=== PATIENT | male | born 1985 | race Caucasian/White ===

== ENCOUNTER 2023-01-09 13:34 | Emergency (ER) | payer SELFPAY ==
[~2023-01-09] VITALS: Ht 175.3 cm; Wt 97.5 kg
[2023-01-09 13:42] VITALS: BP 121/86
[2023-01-09 13:45] VITALS: BP 135/91
[2023-01-09] MEDS ORDERED: BACTRIM DS1 TAB PO (14:37)
[2023-01-09 14:45] VITALS: BP 130/89
[2023-01-09 14:59] VITALS: BP 130/89
== END 2023-01-09 15:01 | disposition home or self-care (01) | DRG 864 ==
LOC: ED 13:34
DX: R50.83 Postvaccination fever (principal); T50.A15A Adverse effect of pertussis vaccine, including combinations with a pertussis component, initial encounter; S61.411D Laceration without foreign body of right hand, subsequent encounter; X58.XXXD Exposure to other specified factors, subsequent encounter

== ENCOUNTER 2023-01-14 05:19 | Emergency (ER) | payer OTHER ==
[~2023-01-14] VITALS: Ht 175.3 cm; Wt 97.0 kg
[~2023-01-14 05:19] MED LIST: BACTRIM DS1 TAB PO
[2023-01-14 06:00] VITALS: BP 126/75
[2023-01-14 06:16] VITALS: BP 129/74
[2023-01-14 06:31] VITALS: BP 109/69
[2023-01-14 06:46] VITALS: BP 120/79
[2023-01-14 07:01] VITALS: BP 115/78
[2023-01-14 07:16] VITALS: BP 121/64
== END 2023-01-14 07:25 | disposition home or self-care (01) | DRG 864 ==
LOC: ED 05:19
DX: R50.83 Postvaccination fever (principal); T50.A15A Adverse effect of pertussis vaccine, including combinations with a pertussis component, initial encounter; S61.411D Laceration without foreign body of right hand, subsequent encounter; X58.XXXD Exposure to other specified factors, subsequent encounter

== ENCOUNTER 2023-01-16 18:30 | Emergency (ER) | payer OTHER ==
[2023-01-16] VITALS (9 sets, daily range): BP systolic 111–127; BP diastolic 68–81
[~2023-01-16] VITALS: Ht 175.3 cm; Wt 97.7 kg
[2023-01-16 19:37] LABS: BASO% 0.1 % (0-3); EOS% 1.9 % (0-8); HEMATOCRIT 39.6 % (39.0-50.0); HEMOGLOBIN 13.5 g/dl (14.0-18.0); IMMATURE GRANULOCYTES 0.3 % (0.0-5.0); LYMPH% 12.9 % (15-41); MEAN CELL VOLUME 90.6 fL CALC (80.0-100.0); MEAN CORPUSCULAR HGB 30.9 pG CALC (26.0-32.0); MEAN CORPUSCULAR HGB CONC 34.1 g/dL CAL (32.0-36.0); NEUT# 6.1 thou/uL (1.82-7.42); NEUT% 81.8 % (42-76); RED BLOOD COUNT 4.37 mill/uL (4.70-6.10); RED CELL DISTRI WIDTH 12.5 % (11.5-15.5)
[2023-01-16 19:45] LABS: URINE BILIRUBIN - DIPSTICK NEGATIVE (NEGATIVE); URINE BLOOD DIPSTICK NEGATIVE (NEGATIVE); URINE COLOR YELLOW; URINE GLUCOSE - DIPSTICK NEGATIVE (NEGATIVE); URINE KETONE NEGATIVE (NEGATIVE); URINE LEUK ESTERASE NEGATIVE (NEGATIVE); URINE PH 6.5 (4.5-8.0); URINE PROTEIN - DIPSTICK NEGATIVE (NEG-TRACE); URINE UROBILINOGEN - DIPSTICK 0.2 E.U./dL (0.2)
[2023-01-16 19:47] LABS: URINE NITRITE - DIPSTICK NEGATIVE (Negative)
[2023-01-16 19:56] LABS: ALBUMIN 3.9 g/dL (3.2-5.0); ALKALINE PHOSPHATASE 119 u/l (38-126); ANION GAP 11 (6-22 (CALC)); BILIRUBIN, TOTAL 0.7 mg/dL (0.2-1.3); BUN 16 mg/dL (9-20); BUN/CREATININE RATIO 13 (12-20 (CALC)); CARBON DIOXIDE 26 mmol/l (22-30); CHLORIDE 100 mmol/l (95-108); CREATININE 1.2 mg/dL (0.7-1.3); GFR FOR AFR.AMER. > 60 ML/MIN (>=60 (CALC)); GFR OTHER RACES > 60 ML/MIN (>=60 (CALC)); POTASSIUM 4.2 mmol/l (3.5-5.1); SGOT/AST 246 u/l (17-59); SODIUM 133 mmol/l (137-146); TOTAL PROTEIN 6.9 g/dL (6.3-8.2)
[2023-01-16] MEDS ORDERED: VIBRAMYCIN100 M2 PO (21:43)
== END 2023-01-16 21:53 | disposition home or self-care (01) | DRG 864 ==
LOC: ED 18:30
PROVIDERS: Nurse Practitioner
DX: R50.9 Fever, unspecified (principal); R52 Pain, unspecified; J98.4 Other disorders of lung; Z87.891 Personal history of nicotine dependence; Z20.822 Contact with and (suspected) exposure to COVID-19
CPT/HCPCS: Q9967

== ENCOUNTER 2023-01-17 03:13 | Inpatient (IN) | payer OTHER ==
[~2023-01-17] VITALS: Ht 175.3 cm; Wt 101.8 kg
[2023-01-17] VITALS (46 sets, daily range): BP systolic 92–130; BP diastolic 41–76
[~2023-01-17 03:13] MED LIST changes: +VIBRAMYCIN100 M2 PO
[2023-01-17 04:06] LABS: BASO% 0.3 % (0-3); EOS% 1.5 % (0-8); HEMATOCRIT 39.1 % (39.0-50.0); HEMOGLOBIN 13.3 g/dl (14.0-18.0); IMMATURE GRANULOCYTES 0.4 % (0.0-5.0); LYMPH% 16.8 % (15-41); MEAN CELL VOLUME 92.7 fL CALC (80.0-100.0); MEAN CORPUSCULAR HGB 31.5 pG CALC (26.0-32.0); MONO% 2.9 % (2-13); NEUT# 5.88 thou/uL (1.82-7.42); NEUT% 78.1 % (42-76); RED BLOOD COUNT 4.22 mill/uL (4.70-6.10)
[2023-01-17 04:18] LABS: ALBUMIN 3.5 g/dL (3.2-5.0); ALKALINE PHOSPHATASE 113 u/l (38-126); ANION GAP 10 (6-22 (CALC)); BILIRUBIN, TOTAL 0.6 mg/dL (0.2-1.3); BUN 16 mg/dL (9-20); BUN/CREATININE RATIO 15 (12-20 (CALC)); CARBON DIOXIDE 27 mmol/l (22-30); CHLORIDE 102 mmol/l (95-108); CREATININE 1.1 mg/dL (0.7-1.3); GFR FOR AFR.AMER. > 60 ML/MIN (>=60 (CALC)); GFR OTHER RACES > 60 ML/MIN (>=60 (CALC)); POTASSIUM 4.2 mmol/l (3.5-5.1); SGOT/AST 180 u/l (17-59); SODIUM 136 mmol/l (137-146); TOTAL PROTEIN 6.1 g/dL (6.3-8.2)
[2023-01-17 10:01] LABS: C-REACTIVE PROTEIN 13.6 mg/dL (0-0.9)
[2023-01-18] VITALS (17 sets, daily range): BP systolic 101–125; BP diastolic 50–90
[2023-01-18 05:32] LABS: BASO% 0.1 % (0-3); HEMATOCRIT 40.4 % (39.0-50.0); HEMOGLOBIN 13.6 g/dl (14.0-18.0); IMMATURE GRANULOCYTES 0.6 % (0.0-5.0); LYMPH% 10.7 % (15-41); MEAN CELL VOLUME 92.4 fL CALC (80.0-100.0); MEAN CORPUSCULAR HGB 31.1 pG CALC (26.0-32.0); MEAN CORPUSCULAR HGB CONC 33.7 g/dL CAL (32.0-36.0); MONO% 3.1 % (2-13); NEUT# 12.83 thou/uL (1.82-7.42); NEUT% 85.5 % (42-76); RED BLOOD COUNT 4.37 mill/uL (4.70-6.10)
[2023-01-18 06:05] LABS: ALBUMIN 3.5 g/dL (3.2-5.0); ALKALINE PHOSPHATASE 97 u/l (38-126); ANION GAP 11 (6-22 (CALC)); BILIRUBIN, TOTAL 0.5 mg/dL (0.2-1.3); BUN 20 mg/dL (9-20); BUN/CREATININE RATIO 23 (12-20 (CALC)); CARBON DIOXIDE 27 mmol/l (22-30); CHLORIDE 103 mmol/l (95-108); CREATININE 0.9 mg/dL (0.7-1.3); GFR FOR AFR.AMER. > 60 ML/MIN (>=60 (CALC)); GFR OTHER RACES > 60 ML/MIN (>=60 (CALC)); POTASSIUM 4.8 mmol/l (3.5-5.1); SGOT/AST 99 u/l (17-59); SODIUM 136 mmol/l (137-146); TOTAL PROTEIN 6.5 g/dL (6.3-8.2)
[2023-01-18 06:29] LABS: C-REACTIVE PROTEIN 23.1 mg/dL (0-0.9)
== END 2023-01-18 15:30 | disposition short-term general hospital (02) | DRG 189 ==
LOC: ED 03:13 → ED-I 03:29 → ED 03:29 → ED-I 05:54 → ED 06:19 → MS2 06:20 → ICU 08:26
PROVIDERS: Family Medicine; ADMIT Internal Medicine; ATTEND Internal Medicine
PROC: 009U3ZX Drainage of Spinal Canal, Percutaneous Approach, Diagnostic (ICD-10-PCS; principal; 2023-01-17)
PROC: 5A0945A Assistance with Respiratory Ventilation, 24-96 Consecutive Hours, High Flow/Velocity Cannula (ICD-10-PCS; 2023-01-17)
PROC: 5A09357 Assistance with Respiratory Ventilation, Less than 24 Consecutive Hours, Continuous Positive Airway Pressure (ICD-10-PCS; 2023-01-18)
DX: J80 Acute respiratory distress syndrome (principal); J15.9 Unspecified bacterial pneumonia; J92.9 Pleural plaque without asbestos; D69.6 Thrombocytopenia, unspecified; T75.89XS Other specified effects of external causes, sequela; Z20.822 Contact with and (suspected) exposure to COVID-19
CPT/HCPCS: J0692; J1650; J3370